=== PATIENT | female | born 1935 | race Caucasian/White ===

== ENCOUNTER 2017-10-12 19:04 | Emergency (ER) | payer OTHER ==
[~2017-10-12] VITALS: Ht 165.1 cm; Wt 75.3 kg
--- NOTE | ~2017-10-12 | EKG ---
[facility] [place] [address] ELECTROCARDIOGRAM REPORT Name: LIBORIO CARRERAN Anaid Room #: [facility]#: [id number] Admission: 10/12/17 Attend Phys: Discharge: 10/12/17 Date of : 35 Report #: [id number] THIS REPORT FOR: //name// [facility] ED Test Date: 2017-10-12 Test Time: 19:39:43 Pat Name: ABDOULAYE CARRERA Department: Room: Gender: F Knitter Machine: LUIS ALBERTO : 1935 Requested By: Linda Cota Order Number: [id number] MD: Dl Butcher Measurements Intervals [place] Rate: 67 P: 65 WY: 280 QRS: 57 QRSD: 97 T: 41 QT: 376 QTc: 397 Interpretive Statements Sinus rhythm Prolonged WY interval Nonspecific ST segment abnormality Compared to ECG 07/24/2007 06:48:31 First degree AV block now present ST and T wave abnormality is less pronounced Electronically Signed On 10-13-2017 8:08:38 CDT by Dl Butcher [email or web address] <ELECTRONICALLY SIGNED> By: Dl Butcher MD, [facility] 10/13/17 0808 38 38 Dl Butcher MD, [facility] /EPI
[~2017-10-12 19:04] MED LIST: ADVAIR 100-501 EACH INH; ASPIRIN325; ATENOLOL 25 MG25 M1 PO; BENICAR20 MG PO; CADUET 5 MG-401 EACH PO; CALCIUM 500 WI1 EAC3 PO; COMBIVENT INH; FISH OIL + D31 EACH PO; MULTIVITAMINS1 EAC7 PO; PERCOCET 5-3251 EACH PO; PREMPRO 0.45-11 EACH PO; SPIRIVA INH; TRAMADOL 50 MG50 MG PO; TYLENOL PM EX-1 EACH PO
[2017-10-12] MEDS ORDERED: GABAPENTIN 100100 MG PO (20:08)
[2017-10-12] MEDS ORDERED: FENOFIBRATE160 MG PO (20:09)
[2017-10-12] MEDS ORDERED: MEDROLDOSEPACK PO (20:51)
[2017-10-12] MEDS ORDERED: VALIUM5 MG PO (20:51)
[2017-10-12 21:19] VITALS: BP 169/62
== END 2017-10-12 21:20 | disposition home or self-care (01) ==
LOC: ER 19:04
DX: M54.12 Radiculopathy, cervical region (principal); Z88.5 Allergy status to narcotic agent; Z95.5 Presence of coronary angioplasty implant and graft

== ENCOUNTER 2018-06-14 11:36 | Emergency (ER) | payer OTHER ==
[~2018-06-14] VITALS: Ht 165.1 cm; Wt 72.6 kg
[~2018-06-14 11:36] MED LIST changes: +FENOFIBRATE160 MG PO; +GABAPENTIN 100100 MG PO; +MEDROLDOSEPACK PO; +VALIUM5 MG PO
[2018-06-14] MEDS ORDERED: MEDROLDOSEPACK PO (14:52)
[2018-06-14] MEDS ORDERED: NORCO 5-325 TA1 EACH PO (14:52)
[2018-06-14 15:16] VITALS: BP 137/48
== END 2018-06-14 15:17 | disposition home or self-care (01) ==
LOC: ER 11:36
DX: M54.16 Radiculopathy, lumbar region (principal); I25.2 Old myocardial infarction; I48.91 Unspecified atrial fibrillation; I25.10 Atherosclerotic heart disease of native coronary artery without angina pectoris; Z88.5 Allergy status to narcotic agent; Z87.891 Personal history of nicotine dependence; Z96.649 Presence of unspecified artificial hip joint

== ENCOUNTER → 2018-07-22 | Outpatient (CLI) | payer OTHER ==
[~2018-07-22] MED LIST changes: +NORCO 5-325 TA1 EACH PO
== END ==
LOC: MRI 12:04
DX: M47.26 Other spondylosis with radiculopathy, lumbar region (principal); M51.17 Intervertebral disc disorders with radiculopathy, lumbosacral region; M25.462 Effusion, left knee; M25.452 Effusion, left hip; M48.061 Spinal stenosis, lumbar region without neurogenic claudication; M71.22 Synovial cyst of popliteal space [Baker], left knee; M22.42 Chondromalacia patellae, left knee; M16.12 Unilateral primary osteoarthritis, left hip; M25.752 Osteophyte, left hip

== ENCOUNTER 2018-07-28 04:43 | Inpatient (IN) | payer OTHER ==
[~2018-07-28] VITALS: Ht 165.1 cm; Wt 74.8 kg
--- NOTE | ~2018-07-28 | HC ---
[facility] [place] [address] CONSULTATION Name: ABDOULAYE CARRERA Room #: 453-P ADM IN M.R.#: [id number] Admission: 07/28/18 Attend Phys: Nate Heath MD Discharge: Date of : 35 Report #: [id number] THIS REPORT FOR: //name// CC: Rishabh Heath DATE OF SERVICE: 07/29/2018 HISTORY OF PRESENT ILLNESS: The patient is an 83-year-old white female, originally admitted with intermittent nausea and vomiting, has a prior history of chronic low back pain. She underwent an MRI scan of her lumbar spine back on 07/22/2018 which showed L4-L5 disc bulging with some chronic changes. She also had an MRI of her left hip showing ozlksaux-ge-uersdh left hip joint arthritis. Apparently, the positioning on MRI caused her some discomfort and she has had problems with severe neck muscle spasm. She was given some baclofen and had some problems with somnolence. She was admitted, noted to have leukocytosis, hypokalemia, acute hypoxic respiratory failure. Her main complaint to me today is severe left-sided posterior neck and suprascapular pain. She holds her head, turned slightly to the right, notes that she cannot turn it to the left past midline. She is concerned about her positioning in bed. Denies any specific weakness of the left upper extremity or lower extremities. PAST MEDICAL AND SURGICAL HISTORY: Includes prior hip replacement in 2006, cardiac stent in 2006, [place] 2006. She is hard of hearing. ALLERGIES: CODEINE AND HYDROCODONE. MEDICATIONS: Please see the full medication listing. This includes vitamins, herbals, and supplements. HABITS: Former smoker, quit greater than a year ago. No history of alcohol abuse. REVIEW OF SYSTEMS: She notes the pain is in her left-sided neck and there is some pain that goes down the left arm. No current complaints of chest pain, shortness of breath, or abdominal discomfort. PHYSICAL EXAMINATION: GENERAL: The patient is an 83-year-old white female, sitting up in bed with pillow around her neck, head turned slightly to the right, in discomfort. Wanting to have the bed position changed. NEUROLOGIC AND MUSCULOSKELETAL: EOMs appeared to be full. No focal spasm was obviously palpated over the suprascapular area, although she is very tender on both the left cervical paraspinals as well as the left trapezius. I could only get her to move her neck to midline to the left. There is no obvious weakness of the left upper extremity. Tone appeared to be intact. Lower extremities, no [address] [address] CONSULTATION Name: ABDOULAYE CARRERA Room #: 453-P [facility] IN M.R.#: [id number] Admission: 07/28/18 Attend Phys: Nate Heath MD Discharge: Date of : 35 Report #: [id number] focal calf swelling, functional range of motion, strength appeared to be a grade 4-/5. No increased tone was noted. Sit to stand is min assist. She is unable to ambulate. Lower extremity dressing is max assist. ADDENDUM: The patient premorbidly had been living in a house alone, used a walker independently, was independent with ADLs, was driving, 1 step in. ASSESSMENT: 1. Severe cervical spine pain/suprascapular pain with apparent cervical spasm and cervical radiculopathy. 2. Considerable functional mobility and ADL deficits. 3. Prior history of chronic low back pain. 4. Left hip yqaenbvf-kd-bfxngm degenerative arthritis. 5. APPARENT INTOLERANCE TO BACLOFEN. 6. Prior nausea and vomiting that has resolved. 7. Electrolyte abnormalities. 8. History of leukocytosis. PLAN: Difficult situation, as she thinks she developed the neck muscle spasm apparently from lying on the MRI table. We do not have an etiology however for her symptomatology and my preference would be to obtain an MRI of her cervical spine if possible. We are considering her for an acute in-hospital inpatient rehabilitation stay, and we will follow along with you. Thank you for asking us to assist in this patient's care. By: [id number] Ortega Lambert MD /nt
[2018-07-28 04:44] VITALS: BP 164/51
[2018-07-28 06:16] LABS: HEMATOCRIT 34.8 % (37.0-47.0); HEMOGLOBIN 11.9 gm/dL (12.0-15.0); MCH 31.9 pg (26.0-34.0); MCHC 34.3 g/dL (28.0-37.0); MCV 92.9 fL (80.0-100.0); PLATELET COUNT 205 thou/uL (150-400); RBC 3.74 mil/uL (4.20-5.00); RDW 13.6 % (10.5-14.5); WBC 20.7 thou/uL (4.0-11.0)
[2018-07-28 06:24] LABS: ANION GAP 13 mmol/L (7-16); BUN 18 mg/dL (7-18); CALCIUM 9.7 mg/dL (8.5-10.1); CHLORIDE 99 mmol/L (98-107); CO2 24 mmol/L (21-32); CREATININE 0.9 mg/dL (0.6-1.0); GLUCOSE 158 mg/dL (74-106); POTASSIUM 3.1 mmol/L (3.5-5.1); SODIUM 136 mmol/L (136-145)
[2018-07-28 06:32] LABS: TROPONIN-I <0.06 ng/mL (<0.06)
[2018-07-28 06:47] LABS: URINE BILIRUBIN NEGATIVE (Negative); URINE BLOOD 1+ (Negative); URINE CLARITY CLEAR; URINE COLOR YELLOW; URINE GLUCOSE-RANDOM* NEGATIVE (Negative); URINE KETONES NEGATIVE (Negative); URINE NITRITE NEGATIVE (Negative); URINE PROTEIN (DIPSTICK) 1+ (Negative); URINE SPECIFIC GRAVITY 1.025 (1.005-1.035); URINE UROBILINOGEN 0.2 E.U./dl (0.2-1.0)
[2018-07-28 06:48] LABS: URINE LEUKOCYTES NEGATIVE (Negative)
[2018-07-28 07:01] LABS: CASTS None Seen /LPF (None Seen); CRYSTALS None Seen /LPF (None Seen); SQUAMOUS 4-10 Moderate /LPF (0-3)
[2018-07-28 07:02] LABS: BACTERIA 1-9 Few /HPF (None Seen); URINE RBC 0-2 Rare /HPF (0-2); URINE WBC 0-5 Rare /HPF (0-5)
[2018-07-28 08:11] LABS: ABSOLUTE NEUTROPHILS 17.2 thou/uL (1.4-8.2); PLATELET ESTIMATE NORMAL
[2018-07-28 08:58] VITALS: BP 105/45
[2018-07-28 09:16] VITALS: BP 116/42
[2018-07-28 09:16] LABS: ALBUMIN 3.2 g/dL (3.4-5.0); DIRECT BILIRUBIN 0.2 mg/dL (<0.1-0.3); TOTAL BILIRUBIN 0.9 mg/dL (<0.1-1.0); TOTAL PROTEIN 8.1 g/dL (6.4-8.2)
--- NOTE | 2018-07-28 10:16 | NUR ---
Received pt from the ER, pt is very sleepy and lethargic. She was not able to respond to the questions for admission and other pertinent information regarding her self and health. Will try again.
[2018-07-28 17:00] VITALS: BP 137/62
[2018-07-28 19:11] VITALS: BP 153/60
--- NOTE | 2018-07-29 02:22 | NUR ---
PT IS LESS DROWSY RESPONDS EASILY TO VOICE PT USED CALL LIGHT EFFECTIVELY PT RESTED MOST OF THE NIGHT.
[2018-07-29 03:00] VITALS: BP 158/64
[2018-07-29 05:11] LABS: ABSOLUTE NEUTROPHILS 8.2 thou/uL (1.4-8.2); BASOPHILS 0.8 % (0.0-2.0); EOSINOPHILS 0.2 % (0.0-3.0); HEMATOCRIT 32.7 % (37.0-47.0); HEMOGLOBIN 11.3 gm/dL (12.0-15.0); LYMPHOCYTES 12.3 % (24.0-44.0); MCH 31.8 pg (26.0-34.0); MCHC 34.5 g/dL (28.0-37.0); MCV 92.2 fL (80.0-100.0); MONOCYTES 6.6 % (1.0-8.0); PLATELET COUNT 188 thou/uL (150-400); POLYS 80.1 % (36.0-66.0); RBC 3.54 mil/uL (4.20-5.00); RDW 13.9 % (10.5-14.5); WBC 10.2 thou/uL (4.0-11.0)
[2018-07-29 05:31] LABS: ALBUMIN 2.8 g/dL (3.4-5.0); CALCIUM 9.1 mg/dL (8.5-10.1); CREATININE 0.9 mg/dL (0.6-1.0); MAGNESIUM 1.4 mg/dL (1.8-2.4); TOTAL BILIRUBIN 0.7 mg/dL (<0.1-1.0); TOTAL PROTEIN 7.3 g/dL (6.4-8.2)
[2018-07-29 07:40] VITALS: BP 153/67
--- NOTE | 2018-07-29 14:25 | NUR ---
PT ADMITTED RELATED TO HEADACHE AND NEXT PAIN. CM REVIEWED CHART AND SPOKE WI CARE TEAM. CM MET WITH PT AT BEDSIDE THIS DAY. PT IS A&0 X4. CM ROLE INTRODUCED. PT INDICATED SHE LIVES IN A HOUSE ALONE WITH 1 STEP TO ENTER AND NO STEPS INSIDE. PT INDICATED SHE HAD USED A FWW TO ASSIST WITH MOBILITY AND INDICATED NO HH HX. PT INDICATED SHE HAD BEEN TO A SKILLED FACILITY IN THE PAST AND THAT SHE WOULD BE RECEPTIVE TO A POST ACUTE CARE STAY IF RECOMMENDED UPON DC. CM TO FOLLOW INDICATED WITH DC PLANNING.
--- NOTE | 2018-07-29 15:08 | EKG ---
[address] [address] ELECTROCARDIOGRAM REPORT Name: SEBAS CARRERAELYN Anaid Room #: 453-P ADM IN M.R.#: [id number] Admission: 07/28/18 Attend Phys: Nate Heath MD Discharge: Date of : 35 Report #: [id number] THIS REPORT FOR: //name// [facility] ED Test Date: 2018-07-28 Test Time: 06:13:22 Pat Name: ABDOULAYE CARRERA Department: Room: [facility] Gender: F Personal Lines Account Manager: Bradley MCKNEZIE : 1935 Requested By: Cassandra Sparks Order Number: [id number] MD: Cornelio Ash Measurements Intervals [place] Rate: 76 P: 0 OR: 201 QRS: 38 QRSD: 97 T: -83 QT: 564 QTc: 635 Interpretive Statements Sinus rhythm Compared to ECG 10/12/2017 19:39:43 First degree AV block no longer present Electronically Signed On 07-29-2018 15:08:28 RACING MECHANIC by Cornelio Ash [email or web address] <ELECTRONICALLY SIGNED> By: Cornelio Ash MD 07/29/18 1508 2 2 Cornelio Ash MD /EDWIN
[2018-07-29 16:42] VITALS: BP 148/72
--- NOTE | 2018-07-29 16:57 | NUR ---
ASSUMED CARE AT 0700. AXOX2. DENIES N/V/AB PAIN. PERSISTENT L NECK/BACK PAIN. TRAMADOL GIVEN PER MD ORDER. SEEN REHAB, RECOMMENDS MRI CERVICAL. NEW ORDER GIVEN AWAITING TRANSPORTATION. POTASSIUM AND MAG REPLAED. WORKED WITH PT/OT. NO SOB NOTED OR REPORTED AT THIS TIME. WILL CONT TO MONITOR FOR PROGRESS
[2018-07-29 19:36] VITALS: BP 151/59
--- NOTE | 2018-07-30 02:34 | NUR ---
PT GIVEN TRAMADOL FOR PAIN DURING THE NIGHT PT ALSO GIVEN ZOFRAN FOR NAUSEA NO ISSUES OVERNIGHT.
[2018-07-30 05:33] VITALS: BP 146/59
[2018-07-30 08:02] VITALS: BP 138/61
[2018-07-30 10:30] VITALS: BP 138/61
[2018-07-30] MEDS ORDERED: MOBIC15 MG PO (11:07)
[2018-07-30] MEDS ORDERED: ZOFRAN 4 MG ORAL4 MG DISSOLVE (11:07)
[2018-07-30] MEDS ORDERED: BACLOFEN 10MG T10 MG PO (11:07)
[2018-07-30] MEDS ORDERED: MAGNESIUM400 MG PO (11:07)
[2018-07-30] MEDS ORDERED: ASPIR 8181 MG PO (11:07)
[2018-07-30] MEDS ORDERED: TRAMADOL 50 MG50 MG PO (11:07)
[2018-07-30] MEDS ORDERED: K-DUR 20 MEQ T20 MEQ PO (11:07)
--- NOTE | 2018-07-30 14:26 | NUR ---
ASSUMED CARE AT 0700, SHIFT ASSESSMENT DONE, MEDS GIVEN, VSS. REPORTED PAIN, PRN MEDS GIVEN. REPORTED NAUSEA, PRN ZOFRAN GIVEN. DISCHARGE ORDERS RECEIVED TO TRANSFER PATIENT TO REHAB. TRANSPORTATION WAS SCHEDULED FOR 1400. PATIENT WAS TRANSPORTED TO 5TH FLOOR REHAB AT 1415 WITH NURSING STAFF.
== END 2018-07-30 14:30 | DRG 640 ==
LOC: ER 04:43 → 4W 08:13 → EROBS 08:13 → 4W 09:25
PROVIDERS: Emergency Medicine; Student in an Organized Health Care Education/Training Program; ADMIT Internal Medicine
DX: E87.6 Hypokalemia (principal); J96.01 Acute respiratory failure with hypoxia; E46 Unspecified protein-calorie malnutrition; R11.2 Nausea with vomiting, unspecified; Z96.649 Presence of unspecified artificial hip joint; D72.829 Elevated white blood cell count, unspecified; M54.12 Radiculopathy, cervical region; G89.29 Other chronic pain; M54.5 Low back pain; M16.12 Unilateral primary osteoarthritis, left hip; I25.10 Atherosclerotic heart disease of native coronary artery without angina pectoris; I48.2 Chronic atrial fibrillation; Z60.2 Problems related to living alone; E83.42 Hypomagnesemia; I10 Essential (primary) hypertension; Z95.5 Presence of coronary angioplasty implant and graft; I25.2 Old myocardial infarction; Z88.6 Allergy status to analgesic agent; Z87.891 Personal history of nicotine dependence; Z68.27 Body mass index [BMI] 27.0-27.9, adult; Z79.82 Long term (current) use of aspirin; Z79.899 Other long term (current) drug therapy
CPT/HCPCS: 10045

== ENCOUNTER 2018-07-30 12:06 | Inpatient (IN) | payer OTHER ==
[~2018-07-30] VITALS: Ht 165.1 cm; Wt 74.4 kg
--- NOTE | ~2018-07-30 | H ---
[facility] [place] [address] [place] [address] HISTORY AND PHYSICAL Name: ABDOULAYE CARRERA Room #: 506-1 ADM IN M.R.#: [id number] Admission: 07/30/18 Attend Phys: Nate Heath MD Discharge: Date of : 35 Report #: [id number] THIS REPORT FOR: //name// CC: Ortega Heath DATE OF SERVICE: 07/30/2018 HISTORY OF PRESENT ILLNESS: The patient is an 83-year-old white female who was originally admitted to [facility] on 07/28/2018 with intractable nausea and vomiting. There is a question as to whether her most recent medication (baclofen) combined with other analgesic medications may have contributed to the evolution of her nausea and vomiting. She also had leukocytosis of 20,000 without a left shift. No obvious evidence of infection and leukocytosis was noted to resolve. She had electrolyte abnormalities that were assessed. She also developed significant pain in her neck. The patient has a prior history of low back pain and underwent a recent MRI of the lumbar spine on 07/22/2018 which revealed some degenerative changes of the lumbar spine. She also was noted to have moderate degenerative changes of her left hip. She indicated apparently during the position of the low back ____ that she had the onset of posterior neck pain. There also was some pain down that left upper extremity. I recommended a cervical spine MRI, but the patient has refused. This was discussed further with Dr. Hura and he makes excellent reference to it in his discharge summary. The patient has had a significant overall functional decline and has been admitted now for an acute in-hospital inpatient rehabilitation stay. PAST MEDICAL HISTORY: Prior hip replacement in 2006, cardiac stent in 2006, [place] in 2006. She is hard of hearing. ALLERGIES: CODEINE AND HYDROCODONE. MEDICATIONS: Please see the full medication listing. This is noted to include vitamins, herbals, and supplements. HABITS: Former smoker, quit greater than a year ago. No history of alcohol abuse. SOCIAL HISTORY: The patient premorbidly had been living in a house alone, used a walker independently, was independent with ADLs, and was driving once step in. REVIEW OF SYSTEMS: Pain appeared better, left side of the neck and down that left arm. Her main complaint at this time with some nausea. She has the chronic low back and left lower extremity pain. [facility] [address] [place] [address] HISTORY AND PHYSICAL Name: ABDOULAYE CARRERA Room #: 506-1 [facility] IN ..#: [id number] Admission: 07/30/18 Attend Phys: Nate Heath MD Discharge: Date of : 35 Report #: [id number] PHYSICAL EXAMINATION: GENERAL: The patient was seen earlier 83-year-old female, in no obvious distress. VITAL SIGNS: Temperature 97.5, pulse 66, respirations 13, and blood pressure 147/58. The patient was pleasant, in no obvious distress, but has nausea noted. HEENT: Facies are symmetric. CHEST: Sounded clear to auscultation. CARDIAC: Regular rate and rhythm. ABDOMEN: Bowel sounds positive, nontender. GENITOURINARY AND RECTAL: Deferred. EXTREMITIES: Functional range of motion of the upper extremities, no obvious weakness of the left upper extremity with cone appearing to be intact. She has some tenderness to movement of the neck, although it may be improved. Lower extremities, no focal calf swelling, functional range of motion, strength is grade 4/5 to 4-/5. No increased tone. No obvious focal weakness of the right upper extremity. She has been min assist with sit to stand. ASSESSMENT: 1. Posterior cervical spine pain with cervical radiculopathy clinically. 2. Complaints of nausea. We will defer to the hospitalist service. 3. History of intractable nausea and vomiting. 4. Transient leukocytosis. 5. Hypokalemia. 6. Hypomagnesemia. 7. Protein calorie malnutrition. 8. Recent acute hypoxic respiratory failure. 9. Chronic atrial fibrillation. 10. Chronic low back pain. 11. Coronary artery disease. PLAN: The patient is admitted for acute in-hospital inpatient rehabilitation. From a post-admission physician evaluation perspective, there are no relevant changes since the preadmission screening. Please see the above review of prior and current medical and functional conditions and comorbidities. Please see the patient's previous and current functional status. As far as risk of complications, the patient has multiple medical comorbidities as noted above. Initial plan of care involves the interdisciplinary acute inpatient rehabilitation program with the goal of maximizing the patient's functional independence, so that she can hopefully return back to her prior living situation. Measurable functional goals would be for her to become modified independent with mobility, gait training, gait aids, transfers and hopefully to feel better as far as her nausea and as far as the neck pain. We will have the therapist do some gentle therapy on her and try to slowly and gradually advance her functional mobility and ADLs. Her prognosis is reasonably good with estimated length of stay probably 2-3 weeks. Potential barriers would include [facility] [address] [place] [address] HISTORY AND PHYSICAL Name: ABDOULAYE CARRERA Room #: 506-1 ADM IN [place]#: [id number] Admission: 07/30/18 Attend Phys: Nate Heath MD Discharge: Date of : 35 Report #: [id number] her multiple medical comorbidities and decreased functional status. Although, she refused to obtain a cervical spine MRI. We will need to monitor her from a neurologic perspective and may need to again advise her in that direction especially if there is evidence of any neurologic compromise. This was well delineate in Dr. Heath's noted as well. The patient meets appropriate diagnostic criteria for an acute inpatient rehabilitation stay. She meets the medical necessity criteria and we will have the consulting hospitalist service is involved. She does have the tolerance for therapies and has appropriate discharge goals back to the home setting. By: [id number] Ortega Lambert MD /nt
--- NOTE | ~2018-07-30 | PLAN ---
[facility] [place] [address] [place] [address] REHAB UNIT PLAN OF CARE Name: ABDOULAYE CARRERA Room #: 506-1 ADM IN M.R.#: [id number] Admission: 07/30/18 Attend Phys: Ortega Lambert MD Discharge: Date of : 35 Report #: [id number] THIS REPORT FOR: //name// CC: Ortega Bryan DATE OF SERVICE: 08/01/2018 PROGRESS NOTE/OVERALL PLAN OF CARE SUBJECTIVE: The patient is seen back today in followup. She is in no distress. The left-sided posterior neck pain and suprascapular discomfort does appear to be improved from before. She appears in better spirits. Temperature 98.4, pulse 87, respirations 19, blood pressure 130/55. She was able to turn her neck with functional range of motion to the right and she can turn to the left about 30 degrees. She was able to extend and flex her neck for me without obvious discomfort. Functionally, she has been participatory in therapies. Transfers are min assist and she has ambulated up to 3 feet min assist with a front-wheeled walker. She does have mild memory deficits and functional cognition. ASSESSMENT: 1. Posterior cervical spine pain with cervical radiculopathy, which appears to be improving. She is able to move the left upper extremity with strength to grade 4-/5. 2. Complaints of nausea. It appears improved. 3. History of intractable nausea and vomiting. 4. Transient leukocytosis. 5. Electrolyte abnormalities. 6. Protein calorie malnutrition. 7. Recent acute hypoxic respiratory failure. 8. History of chronic atrial fibrillation. 9. Chronic low back pain. 10. Coronary artery disease. PLAN: The overall plan of care is based on the preadmission screen, post-admission physician evaluation and information garnered from therapy assessments. 1. Estimated length of stay is probably at least 10 days to 2 weeks pending progress. 2. Medical prognosis is reasonably good. 3. Anticipated interventions includes the interdisciplinary acute inpatient rehabilitation program with PT, OT working with her. 4. Anticipated functional outcomes would be for the patient to become modified independent with transfers, mobility and ADLs, so that she can return back to the home setting. Goal would be for her to be up with the walker. [address] [address] REHAB UNIT PLAN OF CARE Name: ABDOULAYE CARRERA Room #: 506-1 ADM IN ..#: [id number] Admission: 07/30/18 Attend Phys: Ortega Lambert MD Discharge: Date of : 35 Report #: [id number] 5. Discharge destination is going to be a house alone, where she used a walker independently. 6. Expected therapy by discipline includes PT, OT 1-1/2 hours per day each five days a week throughout the duration of the acute inpatient rehabilitation stay. By: [id number] Ortega Lambert MD /VILMA
[~2018-07-30 12:06] MED LIST changes: +ASPIR 8181 MG PO; +BACLOFEN 10MG T10 MG PO; +K-DUR 20 MEQ T20 MEQ PO; +MAGNESIUM400 MG PO; +MOBIC15 MG PO; +ZOFRAN 4 MG ORAL4 MG DISSOLVE
[2018-07-30 14:15] VITALS: BP 147/58
[2018-07-30 14:49] VITALS: BP 147/58
--- NOTE | 2018-07-30 16:05 | NUR ---
PT ADMITTED TO ROOM 506 FOR CERVICAL RADICULOPATHY FROM 4W. ALERT BUT FEELS SICK, NAUSEATE. ORIENTED BRIEFLY TO THE UNIT. VS TAKEN. SAT 89% ON 2L. INCREASE OXYGEN TO 3L. SAT 95-96% ON 3L. PT HAS IV SL ON RIGHT HAND IS INFILTRATED. D/C IV. HAS BRUISES ON UPPER EXTREMITIES, SKIN IS FRAGILE AND EDEMATOUS ON BILATERAL UPPER EXTREMITIES. PT HAS NECK AND BACK PAIN. WHEN ASKED ABOUT PAIN WHERE AND HOW MUCH. PT SAID I HAVE PAIN, BUT JUST WANTS TO LEAVE ALONE NOW. FALL PRECAUTION IN PLACE. CALL LIGHT WITHIN REACH. ENCOURAGED PT TO CALL FOR HELP NEEDS. ADMISSION MED LIST FAXED TO PHARMACY. PHARMACIST CALLED BACK FOR FUTHER INSTRUCTION ON FISH OIL, MULTIVITAMIN, CALCUM CARBONATE VERIFIED WITH DR. RUBALCAVA EACH OF THESE TAKE ONE A DAY. PT WAS ON ESTROGEN/PREPRO AT HOME, WE DON'T CARRY THIS. PT SAID I HAVEN'T ON IT SINCE I AM IN THE HOSPITAL, DOCTOR GINI OK FOR PT NOT TO BE ON PREPRO NOW. NOTIFIED DR. RUBALCAVA THAT PT IS STILL C/O NAUSEA, HE SAID HE WILL ADD SUPPOSITORY ANTIEMETIC. DR. STINSON WAS CONSULT AND NOTIFIED. DR. HEART CALLED BACK AND WILL SEE PT IN THE AM. WILL CONTINUE WITH ADMISSION PROCESS AND WILL CONTINUE TO MONITOR.
--- NOTE | 2018-07-30 18:21 | NUR ---
ADMISSION COMPLETED BY THIS NURSE. PATIENT [place], BUT ORIENTED X4. ABLE TO ANSWER ADMISSION HISTORY AND ASSESSMENT AND MAKE NEEDS KNOWN. CARE PLAN UPDATED. CONSENTS SIGNED BY PATIENT. CONTINUES TO C/O OF NAUSEA. PATIENT'S RN NOTIFIED. PATIENT RESTING IN BED. FALL PRECAUTIONS IN PLACE.
[2018-07-30 19:15] VITALS: BP 148/59
--- NOTE | 2018-07-31 02:46 | NUR ---
assumed care at approx 1900 evening 07/30. pt lying in bed at change of shift sleeping. 02 at 3l per n/c. pt c/o nausea mostly when she gets up or changes position. pt assisted up to bsc and c/o dizziness and nausea/vomiting small amt emesis. pt was able to take hs meds without difficulty. pt back in bed appears to be sleeping soundly. bed alarm on and call light in reach. will continue to monitor.
[2018-07-31 05:48] LABS: HEMATOCRIT 32.3 % (37.0-47.0); HEMOGLOBIN 11.1 gm/dL (12.0-15.0); MCH 32.2 pg (26.0-34.0); MCHC 34.5 g/dL (28.0-37.0); MCV 93.2 fL (80.0-100.0); RBC 3.46 mil/uL (4.20-5.00); RDW 13.6 % (10.5-14.5); WBC 11.7 thou/uL (4.0-11.0)
[2018-07-31 06:07] LABS: CALCIUM 8.7 mg/dL (8.5-10.1); CREATININE 1.2 mg/dL (0.6-1.0); POTASSIUM 4.8 mmol/L (3.5-5.1)
[2018-07-31 07:30] VITALS: BP 123/51
--- NOTE | 2018-07-31 16:34 | NUR ---
ASSUMED CARE OF PT AT 0715. PT IS A&OX4. IS INUPIAT. REPORTS PAIN WITH MOVEMENT BILATER BACK THAT BEGAN SHE STATED WHILE SITTING UP IN BED. PT WAS TRANSFERED TO THE CHAIR. PT WAS WAS ADMINISTERED TRAMADOL 50MG 1 TIME. WAS OFFERED 100MG, BUT PT REFUSED. PT STATED "I DON'T WANT TO KEEP TAKING MEDS". THIS NURSE OFFERED TO CONTATCT DOCTOR FOR ORDER FOR HEATING PAD. PT REFUSED. IS ON 3L OF O2/NC. IS UP WITH 1 ASSIT, GB, TO BEDSIDE COMMODE. REQUIRES EXTRA TIME D/T PAIN. FALL PERCAUTIONS & HOURLY ROUNDING MAINTAINED. LABS & VITALS REVIEWED. PT ASKED THIS NURSE "YOU HAVEN'T HAPPENED TO FIND ANY GLASSES LYING AROUND?". THIS NURSE REPLIED "NO, MA'AM. WHAT DOES YOUR GLASSES LOOK LIKE & WHEN WAS THE LAST TIME THAT YOU SAW THEM". THE PT REPLIED, "THEY ARE THIN & BLACK WITH PROGRESSIVE LENSES. I HAVEN'T SEEN THEM SINCE I CAME THROUGH THE ER". THIS NURSE INFORMED THE PT THAT I WOULD CALL THE ER TO FIND OUT. CONTACTED ER & WAS FORWARED TO THE SECURITY OFFICE. SECURITY REPORTED THAT THEY WOULD LOOK AROUND & INFORM CALL BACK. THIS NURSE TO NOTIFY PT. PT IS CURRENTLY IN ROOM SLEEPING IN BED. CALL LIGHT WITHIN REACH.
[2018-07-31 20:23] VITALS: BP 130/55
--- NOTE | 2018-08-01 04:13 | NUR ---
PT TRANSFERRING TO BEDSIDE COMMODE WITH ASSIST X1 AND IS TOLERATING FAIR. TRAMADOL AND BACLOFEN PROVIDING PARTIAL PAIN RELIEF. RESTING COMFORTABLY. NO NEEDS VOICED. CALL LIGHT WITHIN REACH. WILL CONTINUE TO PROVIDE FREQUENT OBSERVATION.
[2018-08-01 08:00] VITALS: BP 130/60
--- NOTE | 2018-08-01 08:40 | NUR ---
cm visited with pt at bedside, she is a & o x 2-3, pleasant and tazl[place]. noted pt spiting up fluid in basin, chart reviewed. cm notified bedside nurse of pt stated "not feeling well"/kailash. per chart " live alone, 1 step to enter home been to post acute in past."/chart. noted pt was on 3l/nc. will cont following as needed for dc needs. provided senior blue book for outside resources.
[2018-08-01 08:43] LABS: ABSOLUTE NEUTROPHILS 7.2 thou/uL (1.4-8.2); BASOPHILS 1.2 % (0.0-2.0); EOSINOPHILS 1.3 % (0.0-3.0); HEMATOCRIT 31.2 % (37.0-47.0); HEMOGLOBIN 10.5 gm/dL (12.0-15.0); MCH 31.3 pg (26.0-34.0); MCHC 33.6 g/dL (28.0-37.0); MCV 93.3 fL (80.0-100.0); MONOCYTES 9.4 % (1.0-8.0); PLATELET COUNT 243 thou/uL (150-400); POLYS 74.1 % (36.0-66.0); RBC 3.35 mil/uL (4.20-5.00); RDW 13.8 % (10.5-14.5); WBC 9.7 thou/uL (4.0-11.0)
[2018-08-01 08:53] LABS: CALCIUM 9.9 mg/dL (8.5-10.1); CREATININE 1.2 mg/dL (0.6-1.0); MAGNESIUM 2.2 mg/dL (1.8-2.4); POTASSIUM 4.6 mmol/L (3.5-5.1)
--- NOTE | 2018-08-01 11:32 | NUR ---
ASSUMED CARE OF PT AT 0715. PT IS A&OX4. IS [place]. PT SAID HER NAUSEA IS GETTING BETTER. CONTINUE TO BE ON SCHEDULE ZOFRAN. REPORTS BACK AND NECK PAIN WITH MOVEMENT. GAVE PRN TRAMADOL.PT C/O NOT ABLE TO SWALLOW. NOTIFIED DR. YANCEY FOR SPEECH EVAL. PT IS CONT BLADDER, ASSISTED TO BSC WITH ASSIST. PT HAS CERVICAL MRI. REFUSED TODAY SHE SAID SHE DOESN'T FEEL WELL TODAY AND WANTS TO DO ANOTHER THE TIME. MORNING MEDS NOT GIVEN SINCE PT REFUSES. JUAN, RISK INTERN IS AWARE. NOTIFIED JUAN THAT PT IS ON SCHEDULE POTASSIUM AND MAG. POTASSIUM 4.6, MG 2.2. JUAN SAID SHE WILL D/C POTASSIUM AND MAG SCHEDULE. OFFERED SUPPORTIVE CARE, VSS ON 2L OXYGEN. SAT 94%. UP WITH 1 ASSIT, GB, TO BEDSIDE COMMODE. REQUIRES EXTRA TIME D/T PAIN. FALL PERCAUTIONS & HOURLY ROUNDING MAINTAINED. LABS & VITALS REVIEWED. PT IS NOT IN GOOD SPIRIT THIS AM AND REQUEST TO LEAVE ALONE. WILL CONTINUE TO MONITOR.
[2018-08-01 20:47] VITALS: BP 159/68
--- NOTE | 2018-08-02 00:20 | NUR ---
SMALL UNFORMED STOOL, DECLINES MIRALAX TONIGHT. UP TO BSC WITH MINIMAL ASSIST UP AND STAFF ASSIST NEEDED TO GET LEGS BACK IN BED. PAIN IN BACK WHICH SHE BLAMES ON THE BED, REPOSITIONED UP AND TO HER LEFT SIDE FOR COMFORT. APPRECIATES VOLTAREN TO SHOULDER BLADES ESPECIALLY ON THE RIGHT SIDE. CONTINTIENT, WEARING BRIEF FOR POSSIBLE STRESS INCONTINENCE EPISODE.
--- NOTE | 2018-08-02 06:43 | NUR ---
given PRn laxatives for constipation. no BM since 07/28. hypoactive bowel sounds. passed large amount of flatus this morning. continent of urine. up to BSC to void this morning. denies pain. calm, appropriate, no s/s of depression during conversations.
[2018-08-02 07:59] VITALS: BP 156/73
--- NOTE | 2018-08-02 12:22 | NUR ---
ASSUMED CARE OF PT AT 0715. PT IS A&OX4. IS [place]. NIGHT NURSE PT SLEPT OK LAST NIGHT, DENIES PAIN. CONTINUE TO BE ON SCHEDULE ZOFRAN, EXTRA STRENGHT TYLENOL. PAIN AND NAUSEA ARE MANAGABLE. PT C/O SORE LEFT SHOULDER PAIN. OBTAINED VOLARENE GEL, AND GIVE MED NEED. KUB THIS AM SHOWS POSSIBLE MILD COLONIC ILEUS. NOTIFIED JUAN, OBTAIN MORE LAXATIVE NEEDS. GAVE MIRALAX WITH WARM APPLE JUICE, WILL GIVE SUPPOSITORY MED LATER AFTER THERAPY. THERAPISTS REQUEST FOR COGNITIVE EVAL. PT IS MORE COOPERATIVE, UP IN RECLINER, EATING MORE 75% BREAKFAST AND 50% LUNCH. OFFERED SUPPORTIVE CARE, VSS ON 2L OXYGEN. SAT 97%. HAS CONGESTED COUGH, JUAN IS NOTIFIED AND SAID NO NEED FOR CHEST XRAY AT THIS MOMENT. UP WITH 1 ASSIT, GB, TO BEDSIDE COMMODE. REQUIRES EXTRA TIME D/T PAIN. FALL PERCAUTIONS & HOURLY ROUNDING MAINTAINED. LABS & VITALS REVIEWED. PT CALM, COOPERATIV, IN GOOD SPIRIT THIS AM. HER GOALS ARE TO WORK WITH THERAPY BEFORE DISCHARGE. WILL CONTINUE TO MONITOR.
[2018-08-02 19:22] VITALS: BP 131/62
[2018-08-03 07:30] VITALS: BP 157/55
--- NOTE | 2018-08-03 10:38 | NUR ---
ASSUMED CARES AT 0700. PT IN BED, AWAKE, A&O*4. [place], SOME CONFUSION NOTED. VITALS REMAINED STABLE. PT C/O BACK AND NECK PAIN, PAIN MEDICATION ADMINISTERED NEEDED. LEFT HAND EDEMA, DRESSING CHANGED AND PT ENCOURAGED TO ELEVATE EXTREMITY. SKIN TEAR ON LEFT HAND CLEANED AND DRESSING CHANGED. PT CONTINUES TO HAVE BLE EDEMA. PULSES 2+/2+. PT HAD MRI THIS AM, AWAITING RESULTS. PT UP WITH 1 PERSON PIVOT TRANSFERS, AMBULATING WITH 1 PERSON ASSIST GAITBELT AND WALKER AND TOLERATED WELL. Q1H VISUAL CHECKS. CALL LIGHT WITHIN REACH. FALL PRECAUTIONS IN PLACE
--- NOTE | 2018-08-03 14:41 | NUR ---
Patient participated in community reintegration on 08/03/18 with Physical Therapy. Refer to documentation by PT.
[2018-08-03 19:12] VITALS: BP 129/52
--- NOTE | 2018-08-04 04:04 | NUR ---
PAIN MANAGED WITH TRAMADOL AT HS AND VOLTAREN TO RIGHT SCAPULA. UP TO BATHROOM WITH STANDBY ASSIST AND HELP WITH GETTING LEGS BACK IN BED. WEARS BRIEF DUE TO OCCASIONAL STRESS INCONTINENCE THAT HAS NOT BEEN SEEN TONIGHT. TURNING SELF TO LEFT SIDE IN BED AND STATES THAT SHE IS MUCH MORE COMFORTABLE IN THE BED TONIGHT THAN LAST NIGHT. NO C/O NAUSEA AND AWARE OF NEED TO CONTINUE MIRALAX BID FOR NOW; NO BM THIS SHIFT
[2018-08-04 05:27] LABS: ABSOLUTE NEUTROPHILS 3.9 thou/uL (1.4-8.2); BASOPHILS 0.8 % (0.0-2.0); EOSINOPHILS 4.2 % (0.0-3.0); HEMATOCRIT 29.7 % (37.0-47.0); HEMOGLOBIN 10.3 gm/dL (12.0-15.0); LYMPHOCYTES 24.3 % (24.0-44.0); MCH 32.1 pg (26.0-34.0); MCHC 34.8 g/dL (28.0-37.0); MCV 92.2 fL (80.0-100.0); MONOCYTES 11.3 % (1.0-8.0); PLATELET COUNT 218 thou/uL (150-400); POLYS 59.4 % (36.0-66.0); RBC 3.22 mil/uL (4.20-5.00); RDW 13.8 % (10.5-14.5); WBC 6.5 thou/uL (4.0-11.0)
[2018-08-04 05:33] LABS: MAGNESIUM 1.4 mg/dL (1.8-2.4); POTASSIUM 4.1 mmol/L (3.5-5.1)
[2018-08-04 08:25] VITALS: BP 142/58
[2018-08-04 08:26] VITALS: BP 130/58
--- NOTE | 2018-08-04 09:00 | NUR ---
PER OT RANDY, PT C/O DIZZINESS WHILE PERFORMING ADL'S THIS AM. O2 SAT 84% AND CAME UP TO 96% QUICKLY WITH CUES FOR DEEP BREATHS. PT TOLERATED ADL'S, AND PCT CHECKED SITTING AND STANDING BP/PULSE FOR ORTHOSTATIC HYPOTENSION. SEE VS REPORTS. ALL RESULTS NOTED TO JUAN SRIVASTAVA NP.
--- NOTE | 2018-08-04 10:27 | NUR ---
ASSUME PT CARE AT 0900. ALERT AND ORIENTED X4, C/O SHAKING, NERVOUSNESS. JUST HAD COGNITIVE EVAL WITH SPEECH THERAPIST. VSS ON RA. SAT 97% ON RA. MORNING MEDS GIVEN. MIRALAX GIVEN SCHEDULED. LAST BM WAS YESTERDAY. PT DOESN'T LIKE MIRALAX BUT TAKE IT INSTRUCTED. UP WITH CGA AND WALKER. ATE 75% BREAKFAST. DENIES NAUSEA. NOTIFIED JUAN ABOUT SHAKING, NERVOUS, NAUSEA AND DISLIKE OF MIRALAX TO OBTAIN ORDER TO CHANGE ZOFRAN SCHEDULE TO PRN AND MIRALAX ONCE A DAY. OFFERED SUPPORTIVE CARE. ENCOURAGED PT TO VOICE HER NEEDS AND REASSURE PT THAT SHE IS DOING BETTER. PT IS SMILING, IN GOOD SPIRIT. UP AND WALKING WITH PHYSCIAL THERAPIST NOW. WILL CONTINUE TO MONITOR AND ENCOURAGE PT TO CALL FOR HELP. FALL PRECAUTION IN PLACED.
--- NOTE | 2018-08-04 13:34 | NUR ---
TEAM MEETING, RECOMMENDATION: RE-TEAM NEXT WEEK WITH POSSIBLE DC 10TH. WILL CONT FOLLOWING NEEDED FOR DC NEEDS.
[2018-08-04 19:25] VITALS: BP 94/71
--- NOTE | 2018-08-05 02:02 | NUR ---
BLAMES BACK PAIN ON BED, TRAMADOL AT HS NOT HELPFUL PREVIOUS NIGHT. NOW TRYING ANOTHER TRAMADOL PLUS BACLOFEN AND VOLTAREN. TURNED TO RIGHT SIDE AT THIS TIME. USED BATHROOM FOR SMALL BROWN UNFORMED STOOL AFTER A LOT OF FLATUS.
[2018-08-05 08:15] VITALS: BP 126/53
--- NOTE | 2018-08-05 11:50 | NUR ---
ASSUME PT CARE AT 0700. REPORTS SLEEP GOOD LAST NIGHT. ALERT AND ORIENTED X4, [place], ABLE TO VOICE HER NEEDS. UP WITH CGA AND WALKER. APPETITE GOOD. DENIES NAUSEA. OBTAINED ORDER TO CHANGE ZOFRAN TO PRN. REASSESSMENT PER CHART. DESAT TO 80% EARLIER. 1L OF OXYGEN APPLIED. SAT 98%. OXYGEN OFF NOW. SAT 94% ON RA. ENCOURAGED PT TO DO DEEP BREATHING OFTEN. OFFERED SUPPORTIVE CARE. ENCOURAGED PT TO VOICE HER NEEDS AND REASSURE PT THAT SHE IS DOING BETTER. FRIEND AT BEDSIDE. PT IS SMILING, IN GOOD SPIRIT. WILL CONTINUE TO MONITOR AND ENCOURAGE PT TO CALL FOR HELP. FALL PRECAUTION IN PLACED. CALL LIGHT WITHIN REACH. CHECK FREQUENTLY FOR NEEDS AND SAFETY.
[2018-08-05 20:54] VITALS: BP 164/55
--- NOTE | 2018-08-06 02:36 | NUR ---
assumed care at approx 1900 evening 08/05. pt lying in bed with head of bed elevated sleeping off and on. pt given pain med for back/neck pain. pt took hs meds with applesauce tolerating well. pt appears to be sleeping soundly with hourly rounding checks. bed alarm on and call light in reach. will continue to monitor.
--- NOTE | 2018-08-06 16:23 | NUR ---
PT. UP MOST OF THE DAY IN HER ROOM. DID ATTEND THERAPIES. REFUSED SHOWER AND/OR SPONGE BATH STATING, "I DON'T NEED TO BATHE EVERYDAY" TOOK MEDICATIONS WITH APPLESAUCE. HAS NOT HAD BM TODAY. DENIES PAIN. NO PAIN MEDS GIVEN. CHANGED OPTI FOAM TO L WRITST. WAS PLEASANT AND COOPERATIVE WITH ALL STAFF AND PEERS. HAD FAMILY VISITORS TODAY. WILL CONTINUE PLAN OF CARE
[2018-08-06 19:24] VITALS: BP 137/54
--- NOTE | 2018-08-07 03:16 | NUR ---
UP TO BATHROOM WITH GAIT BELT AND WALKER TWICE TONIGHT. MANAGING HER OWN BRIEF WHICH HAS BEEN DRY BUT SHE WEARS OUT OF HABIT DUE TO OCCASIONAL STRESS INCONTINENCE. ABLE TO GET HER LEGS BACK IN BED AFTER THE SECOND TRIP TO BATHROOM TONIGHT.
[2018-08-07 07:21] VITALS: BP 155/74
--- NOTE | 2018-08-07 11:11 | NUR ---
ASSUMED CARE AT 0700. PATIENT IS ALERT AND ORIENTED X4. PATIENT IS [place]. PATIENT VALIENTE'S, INSOLE REINFORCER ARE EQUAL. PATIENT IS UP WITH ASSIST OF 1 STAFF, GAIT BELT, AND WALKER. UP IN CHAIR FOR MEALS. FALL AND SAFETY PROTOCOLS IN PLACE. DENIES PAIN AT THIS TIME. CONTINUES TO PROGRESS SLOWLY TOWARDS D/C GOALS. WILL CONTINUE T0 MONITER.
[2018-08-07 19:32] VITALS: BP 144/99
--- NOTE | 2018-08-08 01:33 | NUR ---
APPRECIATES BACLOFEN WITH 50 MG TRAMADOL AT HS AND HAS BEEN RESTING WELL ON HER SIDE TONIGHT. SBA WITH WALKER AND GAIT BELT TO THE BATHROOM, MANAGES OWN BRIEF, ABLE TO GET LEGS BACK IN BED BY HERSELF TONIGHT. AMUSED BY TAKING MEDS WITH APPLESAUCE AND STATES HOW MUCH EASIER PILLS ARE TO SWALLOW.
[2018-08-08 04:29] LABS: ABSOLUTE NEUTROPHILS 4.6 thou/uL (1.4-8.2); EOSINOPHILS 2.7 % (0.0-3.0); HEMATOCRIT 30.3 % (37.0-47.0); HEMOGLOBIN 10.5 gm/dL (12.0-15.0); LYMPHOCYTES 21.4 % (24.0-44.0); MCH 32.3 pg (26.0-34.0); MCHC 34.8 g/dL (28.0-37.0); MCV 92.9 fL (80.0-100.0); MONOCYTES 9.3 % (1.0-8.0); PLATELET COUNT 190 thou/uL (150-400); POLYS 65.6 % (36.0-66.0); RBC 3.26 mil/uL (4.20-5.00); RDW 13.8 % (10.5-14.5)
[2018-08-08 04:34] LABS: CALCIUM 9.8 mg/dL (8.5-10.1); MAGNESIUM 1.4 mg/dL (1.8-2.4); POTASSIUM 3.8 mmol/L (3.5-5.1)
[2018-08-08 08:13] VITALS: BP 136/67
--- NOTE | 2018-08-08 12:34 | NUR ---
PATIENT WAS SCHEDULED FOR A 10:00 OT ADL BUT REFUSED DUE TO NAUSEA. SHE HAD JUST GOTTEN A NAUSEA PILL AND OT AGREED TO RETURN AT 11:00. AT 11:00 PATIENT STATED THAT SHE WAS NOT GOING TO DO ANY THERAPY; SHE WAS NOT FEELING WELL. OT EXPLAINED THAT SHE COULD PARTICIPATE AT CHAIR LEVEL FOR A SPONGE BATH AND DRESSING BUT PATIENT BECAME TEARFUL AND STATED THAT WHE WAS NOT GOING TO BE FORCED INTO IT. OT EXPLAINED THAT INSURANCE WOULD NOT CONTINUE TO COVER HER STAY UP HERE IF SHE DID NOT PARTICIPATE IN THERAPY AND THAT SHE WAS DOING SO MUCH BETTER AND DID NOT WANT TO LOSE GROUND. OT COULD NOT CONVINCE PATIENT TO PARTICIPATE IN THERAPY TODAY EVEN AFTER MUCH ENCOURAGEMENT. AND STATED THAT
[2018-08-08 19:30] VITALS: BP 149/53
--- NOTE | 2018-08-08 19:40 | NUR ---
ASSUMED CARE AT APPROX 0715. PATIENT A/O X4. [place]. DENIES PAIN. UP X1 ASSIST, GB AND WALKER. PARTICIPATING IN THERAPY. DRESSING TO LEFT HAND CHANGED PRE ORDERS. CXR COMPLETE. PATIENT COMPLAINING OF SNEEZING, NASAL DRAINAGE. FLONASE ORDERED. MAGNESIUM REPLACED PER ONETIME ORDER. FALL PRECAUTIONS IN PLACE. PATIENT ABLE TO MAKE NEEDS KNOWN. RESTING IN RECLINER AT CHANGE OF SHIFT.
--- NOTE | 2018-08-08 21:41 | HC ---
[facility] [place] [address] [place] [address] CONSULTATION Name: ABDOULAYE CARRERA Room #: 506-1 [facility] IN ..#: [id number] Admission: 07/30/18 Attend Phys: Ortega Lambert MD Discharge: Date of : 35 Report #: [id number] THIS REPORT FOR: //name// CC: Ortega Bryan DATE OF SERVICE: 08/06/2018 NEUROBEHAVIORAL STATUS EXAMINATION ATTENDING PHYSICIAN: Nate Heath M.D. CHRONIC CARE NURSE: Macario Harris, PhD. CLINICAL PRESENTATION: The patient is an 83-year-old female admitted to the rehabilitation unit at [facility] for a comprehensive inpatient rehabilitation program to improve functional mobility, activities of daily living and self-care and mental status secondary to deficits from posterior cervical spine pain and cervical radiculopathy. She was initially admitted to the hospital with intractable nausea and vomiting. Her assessment on rehabilitation included complaints of nausea, history of intractable nausea and vomiting, transient leukocytosis, hypokalemia, hypomagnesemia, protein-calorie malnutrition, recent acute hypoxic respiratory failure, chronic atrial fibrillation, chronic low back pain and coronary artery disease. A neuropsychological assessment was requested to provide assistance in the assessment of cognitive and emotional status and to provide recommendations and services. Prior to this most recent admission, the patient was living independently in her own home. While laying down in her bed she reported severe pain that led her to call 911 for emergency assistance. She had 2 children. One child at age 29 from cancer. The patient is a high school graduate. 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 Prior to her hosptialization, she reports having been independent with instrumental activities of daily living. Social support is reported as good. TECHNIQUES UTILIZED: Clinical interview, review of medical records, staff consultation and behavioral observation, mini mental status exam 2 standard version and clock drawing and verbal fluency assessment (letter and category). EXAMINATION FINDINGS: The patient was alert and cooperative with the assessment. She accurately described events surrounding her admission. There is no evidence of aphasia. Thoughts are logical and goal oriented. The patient is severely hard of hearing. She does not report auditory or visual hallucinations or suicidal ideation. [facility] [address] [place] [address] CONSULTATION Name: ABDOULAYE CARRERA Room #: 506-1 ADM IN M.R.#: [id number] Admission: 07/30/18 Attend Phys: Ortega Lambert MD Discharge: Date of : 35 Report #: [id number] She requires increased volume during verbal communication, which is likely to impact her overall level of functioning because of auditory perception. She describes symptoms to primarily include sleep with no difficulty in memory, word finding or attention/concentration. Appetite she described is normal. She does not report anxiety or depression. Her performance on the brief version of the MMSE 2 is within normal limits with a raw score 16/16. However, it was necessary to use written compensation because of severe hearing deficits in order to assess memory. Auditory memory is likely to be reduced as a result of hearing. Performance on the MMSE 2 standard version is within normal limits with a raw score of 28/30. She was 3/5 for serial sevens, 2/2 for naming, 1/1 for repetition, 3/3 for auditory comprehension. She could read and follow a single command, write a sentence and copy a simple geometric design. Letter fluency was in the borderline range with a raw score of 13, T-score 35, and percentile rank of 7. Category fluency assessed through animal fluency was in the low average range with a T-score of 39 and percentile rank of 14. Evidence of working memory deficits are noted during letter fluency as she frequently forgot what words she had just said. Consistent with working memory deficts are impairment in attention and concentration. 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 Unspecified anxiety -- patient reports being listless and lethargic during the day. RECOMMENDATIONS: The patient will benefit from increased assistance upon her return home. She is living independently and assistance may be necessary for shopping, cooking and maintaining the home. Additionally, a hearing assessment is indicated. Thank you very much for allowing me to provide the consultation on this patient. <ELECTRONICALLY SIGNED> By: Macario Harris, PhD 08/08/18 [id number] Macario Harris, PhD /nt
--- NOTE | 2018-08-08 22:58 | NUR ---
PT ALERT AND ORIENTED X 4. TEARFUL AT TIMES. AMB TO BR WITH WALKER AND ASSIST X 1. TAKES MEDS IN APPLESAUCE WITHOUT DIFFICULTY. PT REFUSED MIRALAX AT BEDTIME. LEFT HAND DRESSING C/D/I. OCCASIONAL SNEEZING AND COUGHING NOTED. PT DENIES PAIN OR DISCOMFORT. BED ALARM ON FOR SAFETY. PT APPEARS TO BE SLEEPING ON HOURLY ROUNDS.
--- NOTE | 2018-08-09 06:56 | NUR ---
PT WOKE UP C/O NAUSEA. VOMITED SMALL AMT YELLOW MUCOUS. ZOFRAN GIVEN ORDERED. REPORT GIVEN TO DAY NURSE.
[2018-08-09 07:48] VITALS: BP 135/57
[2018-08-09 11:31] LABS: URINE BILIRUBIN NEGATIVE (Negative); URINE BLOOD NEGATIVE (Negative); URINE CLARITY HAZY; URINE COLOR YELLOW; URINE GLUCOSE-RANDOM* NEGATIVE (Negative); URINE KETONES NEGATIVE (Negative); URINE NITRITE-REFLEX NEGATIVE (Negative); URINE PROTEIN (DIPSTICK) NEGATIVE (Negative); URINE UROBILINOGEN 0.2 E.U./dl (0.2-1.0)
[2018-08-09 11:32] LABS: URINE LEUKOCYTES-REFLEX NEGATIVE (Negative)
--- NOTE | 2018-08-09 12:48 | NUR ---
team meeting, recommendation: initial supervision vs just frequent checks, medication set up and address medical issue. dc and or wednesday depending on medical issue, if family could stay with her for few days when gets home. hh (pt,ot,st,sw, and nursing).
--- NOTE | 2018-08-09 15:53 | NUR ---
ASSUMED CARES AT 0700. PT AWAKE, ALERT AND ORIENTED*4. C/O NAUSEA AND HAD 4 MOD-LARGE EMESIS EPISODES. ABDOMEN SOFT AND ROUND, BS ACTIVE *4, LAST BM 08/07. KUB ORDERED, SHOWED NO OBSTRUCTION AND NO ILLEUS. ZOFRAN ODT ADMINISTERED NEEDED FOR NAUSEA. PT C/O HEADACHE 03/11. TRAMADOL ADMINISTERED NEEDED. LS CLEAR, PT HAS A DRY COUGH, O2 SATS > 95%. HOSPITALIST NOTIFIED. URINALYSIS AND OCCULT BLOOD ORDERED. PT CONTINUES TO HAVE A SKIN TEAR ON THE LEFT HAND, DRESSING CHANGED. UP WITH 1 PERSON MINIMAL ASSIST AND TOLERATED WELL. Q1H VISUAL CHECKS. CALL LIGHT WITHIN REACH. FALL PRECAUTIONS IN PLACE
[2018-08-09 19:20] VITALS: BP 145/53
--- NOTE | 2018-08-10 01:17 | NUR ---
PT ALERT AND ORIENTED X 4. AMB TO BR WITH WALKER AND ASSIST X 1 WITHOUT DIFFICULTY. STOOL OCCULT BLOOD NEGATIVE. PT DENIES PAIN OR DISCOMFORT. DENIES NAUSEA. BED ALARM ON FOR SAFETY. PT CHECKED ON HOURLY ROUNDS.
[2018-08-10 08:36] VITALS: BP 153/63
--- NOTE | 2018-08-10 10:13 | NUR ---
ASSUMED CARES AT 0700. PT AWAKE, A/O*4. DENIES N&V, SCOPALAMINE PATCH ON AND ZOFRAN ADMINISTERED BEFORE MEALS. DENIES PAIN. VITALS REMAIN STABLE. SKIN ON HAND LEFT INTACT, SMALL AMOUNT OF CLEAR DRAINAGE NOTED, CLEANED AND DRESSING CHANGED. MILD EDEMA ON BLE. PT UP WITH 1 PERSON ASSIST AND TOLERATED WELL. Q1H VISUAL CHECKS. CALL LIGHT WITHIN REACH. FALL PRECAUTIONS IN PLACE
--- NOTE | 2018-08-10 14:18 | NUR ---
Nutrition: pt admitted with cervical radiculopathy and seen due to LOS on rehab unit. Chart reviewed. Pt tolerating meals on regular diet. Intake variable however due to Intermittent N/V. GI on consult. ? gastroparesis. Pt has declined EGD. On zofran. Intake 25-100% of meals. Able to order meals. Stable weights. Refuses supplements. D/C soon. Consider low nutrition risk.
--- NOTE | 2018-08-10 14:52 | NUR ---
Patient participated in community reintegration on 08/10/18 with Physical Therapy. Refer to documentation by Physical Therapy.
--- NOTE | 2018-08-10 15:07 | NUR ---
FAXED REFERRAL TO [facility] SPOKE WITH NANCY IN ADM. AND SHE RECEIVED REFERRAL AND REVIEWED AND CAN ACCEPT PT. AT DISCHARGE. ANTICIPATE DC ANYWHERE BETWEEN WEDNESDAY OR EARLY NEXT WEEK. DCP TO FOLLOW.
[2018-08-10 15:09] VITALS: BP 153/63
--- NOTE | 2018-08-10 15:57 | NUR ---
daljit visited with friend yun via phone call who stated " i can help her with setting up her medication when she gets home and check on her. she agreed to order a life alert and niece will get that set up heron. heron will be one who brings her home because she will not be able to get my car, its to low to ground. heron # [phone]"/yun. daljit spoke with nimaria victoria on phone call rt dcp " we will help here and yun might even stay night if kailash will agree to let her, life alert station should arrive tomorrow. i am not able to pick her up until wednesday, rt not back in town till then. [facility] great and they can call me and set up time. i will cont to come weekly and check on her. she told us that you all do not feel she should drive. we will encourage that she no longer drive and going to get her smaller microwave to use that she does not have to reach over her head to cook in. need to know list of her medication and would like to know if cbd medication she has at home is going to interact with any of her medciation. we will check on her and reminder her to take her medication."/heron- nathaniel. education on someone being able to assist her with her finances. " oh we will try, but she has it but doesn't not like to spend it and minute she gets bill she wants to pay it"/heron. will cont following as needed for dc needs. referral sent to [facility] per pt,family request. [facility] able to accept for hh at dc (pt, ot, st, nursing and sw).
[2018-08-10 19:26] VITALS: BP 127/45
--- NOTE | 2018-08-11 05:54 | NUR ---
PT STAYED LATE IN THE CHAIR, HAD TWO CUPS COFFEE, TOILETED, NO BM PASSED, TOOK MIRALAX LAST NOC, FOR PAIN WAS MEDICATED WITH [place] AND BACLOFEN, RESTING GOOD, ON ROOM AIR, USING CALL LIGHT APPROPRIATELY, HOURLY ROUNDING, MONITORED.
--- NOTE | 2018-08-11 16:33 | NUR ---
ASSUMED CARE AT APPROX 0715. PATIENT A/O X4. PARTICIPATING IN THERAPY. VSS. UP X1 ASSIST GB AND WALKER. MOVED TO ROOM 501. MOD I IN ROOM, WHITE BELT FALL PRECAUTIONS IN PLACE. L WRIST OPTIFOAM C/D/I. DENIES PAIN, NAUSEA, VOMITING THIS DATE. SCHEDULED ZOFRAN GIVEN. CALLS APPROPRIATELY FOR ASSISTANCE WILL CONTINUE TO MONITOR.
[2018-08-11 21:02] VITALS: BP 137/51
--- NOTE | 2018-08-12 05:06 | NUR ---
patient calm, pleasant, cheerful. up to recliner during the evening. denied pain. using walker for ambulation in room - mod independence for mobility. denied nausea. no BM this shift, took scheduled laxative at HS. drinking water.
[2018-08-12 05:29] LABS: BASOPHILS 0.7 % (0.0-2.0); EOSINOPHILS 2.9 % (0.0-3.0); HEMATOCRIT 30.4 % (37.0-47.0); HEMOGLOBIN 10.3 gm/dL (12.0-15.0); LYMPHOCYTES 29.2 % (24.0-44.0); MONOCYTES 9.3 % (1.0-8.0); PLATELET COUNT 177 thou/uL (150-400); POLYS 57.9 % (36.0-66.0); RBC 3.23 mil/uL (4.20-5.00); RDW 14.4 % (10.5-14.5)
[2018-08-12 05:46] LABS: CALCIUM 8.9 mg/dL (8.5-10.1); CREATININE 1.1 mg/dL (0.6-1.0); MAGNESIUM 2.1 mg/dL (1.8-2.4); POTASSIUM 4.2 mmol/L (3.5-5.1)
[2018-08-12 08:00] VITALS: BP 133/52
--- NOTE | 2018-08-12 10:30 | NUR ---
ASSUMED CARE AT APPROX 0715. PATIENT A/O X4. [place]. REPORTS SLEPT GOOD ON THE REGULAR BED AT THE APARTMENT. TOOK ALL MORNING MEDS. DENIES SOB, N/V. PAIN. TOOK PAIN MEDS SCHEDULED. PARTICIPATING IN THERAPY. VSS. UP X1 ASSIST GB AND WALKER. MOVED TO ROOM 501. MOD I IN ROOM, WHITE BELT FALL PRECAUTIONS IN PLACE. L WRIST SKIN TEAR IS SCABBED OVER DRUM DRIER. OFFERED SUPPORTIVE CARE. ENCOURAGED PT TO VOICE HER NEEDS. HER GOALS CONTINUE WITH THERAP BEFORE DISCHARGE HOME ON NEXT WEDNESDAY. REPORTS HAD LOOSE STOOL THIS AM. HELD MIRALAX AND COLACE AND CONTINUE TO MONITOR SINCE PT HAS HX OF COLONIC ILEUS. CALLS APPROPRIATELY FOR ASSISTANCE WILL CONTINUE TO MONITOR. CALL LIGHT WITHIN REACH.
--- NOTE | 2018-08-12 14:37 | NUR ---
received phone from niece heron who stated " her daughter called and will be in from [place] tomorrow and wants the car so i will bring back keys, but if pt doesn't want her to have it can she because she is dpoa."/heron. education on pt telling her daughter if she doesnt want her granddaughter to stay with here and that she not ready to give her car away. received call from daughter dagoberto stated " going to come in for visit tomorrow and then my daughter is going to stay with mom when she gets home"/daughter dagoberto. cm referenced senior blue book. cm was notified by pt that she wanted to talk. pt is a & o x 3, pleasant and able to make her needs know. let me know that her daughter was going to come for visit. spoke with heron linder and yun at bedside, they wanted to know who to fix daughter wanting to change dcp of granddaughter moving in. education that kailash needs to tell dagoberto that she doesnt want that. " well if problem with visit do we call cm"/pt. education that if problems arrives 5n team can call security if needed. " ok thanks"/pt. cm passed on information about daughter coming to visit tomorrow from [place]. will cont following as needed for dc needs.
[2018-08-12 21:20] VITALS: BP 139/46
--- NOTE | 2018-08-13 04:06 | NUR ---
in good spirits, looking forward to being able to go home Wednesday. up with walker in room, sat up in recliner during the evening. denies pain, nausea or dizziness. reported BM during day shift. took scheduled laxatives. encouraging water.
[2018-08-13 07:07] VITALS: BP 139/57
--- NOTE | 2018-08-13 08:15 | NUR ---
ASSUMED CARE AT 0715. REPORTS SLEPT GOOD. NIGHT NURSE SAID SHE HAD LARGE LOOSE BM THIS AM. HELD MIRALAX. VSS ON RA. TOOK ALL HER MORNING MEDS. PT DRESSED UP BY HERSELF. DENIES PAIN, SOB, N/V. HER GOALS TO HAVE GOOD VISIT WITH HER DAUGHTER AND WATCHING [employer] GAME TODAY. PATIENT A/O X4. [place]. CONTINUE PARTICIPATING IN THERAPY. UP X1 ASSIST GB AND WALKER. MOVED TO ROOM 501. MOD I IN ROOM, WHITE BELT FALL PRECAUTIONS IN PLACE. OFFERED SUPPORTIVE CARE. ENCOURAGED PT TO VOICE HER NEEDS. APPROPRIATELY FOR ASSISTANCE WILL CONTINUE TO MONITOR. CALL LIGHT WITHIN REACH.
[2018-08-13 20:01] VITALS: BP 150/55
--- NOTE | 2018-08-14 01:29 | NUR ---
PT AMBULATING IN APT INDEPENDENTLY WITH WALKER AND IS TOLERATING WELL. DENIES PAIN. RESTING COMFORTABLY. NO NEEDS VOICED. CALL LIGHT WITHIN REACH. WILL CONTINUE TO PROVIDE FREQUENT OBSERVATION.
[2018-08-14 07:15] VITALS: BP 142/61
--- NOTE | 2018-08-14 09:49 | NUR ---
ASSUMED CARE AT 0700. PATIENT IS ALERT AND ORIENTED X4. PATIENT VALIENTE, FABRICATION ENGINEER ARE EQUAL , PATIENT IS A WHITE BELT AND MOD/I IN HER ROOM. LUNGS ARE CLEAR. ABD IS SOFT WTIH BSX4 . ABD IS SOFT WITH BSX4. UP TO THE BATHROOM TO VOID. FALL AND SAFETY PROTOCOLS IN PLACE. C/O [place] PAIN. MEDICATED WITH PRN PAIN MED. CONTINUES TO PROGRESS TOWARDS D/C GOALS. PLAN D/C TO HOME IN THE A.M.
[2018-08-14 19:54] VITALS: BP 130/42
--- NOTE | 2018-08-15 01:45 | NUR ---
PT AMBULATING IN ROOM INDEPENDENTLY WITH WALKER AND IS TOLERATING WELL. DENIES PAIN. PLAN FOR DISCHARGE HOME 08/15. RESTING COMFORTABLY. NO NEEDS VOICED. CALL LIGHT WITHIN REACH. WILL CONTINUE TO PROVIDE FREQUENT OBSERVATION.
[2018-08-15 08:00] VITALS: BP 132/62
[2018-08-15 08:51] VITALS: BP 153/63
[2018-08-15] MEDS ORDERED: PROTONIX 20 MG20 M1 PO (09:50)
[2018-08-15] MEDS ORDERED: VOLTAREN100 GM TOP (09:50)
[2018-08-15] MEDS ORDERED: COLACE100 MG PO (09:50)
[2018-08-15] MEDS ORDERED: MIRALAX17 GM PO (09:50)
--- NOTE | 2018-08-15 10:38 | NUR ---
ASSUMED CARE AT 0700. REPORTS SLEPT GOOD. PATIENT IS ALERT AND ORIENTED X4. [place], ABLE TO VOICE HER NEEDS. EXCITING TO GO HOME TODAY. HER NIECE WILL PICK HER UP. REASSESSMENT PER CHART.CLASSIFIED ADVERTISING SUPERVISOR ARE EQUAL, PATIENT IS A WHITE BELT AND MOD/I IN HER ROOM.OT ASSISTED PT TO TOOK SHOWER THIS AM. LUNGS ARE CLEAR. ABD IS SOFT WTIH BSX4. REFUSED MIRALAX THIS AM, BUT TOOK COLACE. HAD SOFT BM TODAY. UP TO THE BATHROOM TO VOID. FALL AND SAFETY PROTOCOLS IN PLACE. DENIES PAIN. SCHEDULE MEDS GIVEN. OFFERED SUPPORTIVE CARE. PT UP WITH THERAPY. BIGHT MAKER FINISHED DISCHARGE MEDS. WILL REVIEWED DC INSTRUCTIONS AND MEDICATIONS WHEN FAMILY COME. PT USES CALL LIGHT APPROPRIATE, WILL CONTINUE TO MONITOR.
[2018-08-15] MEDS ORDERED: ASPIRIN325 PO (10:50)
[2018-08-15] MEDS ORDERED: CLARITIN10 MG PO (10:51)
[2018-08-15] MEDS ORDERED: FLONASE 0.05%50 MCG NASAL (10:51)
[2018-08-15 13:11] VITALS: BP 153/63
--- NOTE | 2018-08-16 14:49 | NUR ---
PT. DISCHARGED TO HOME WITH [facility] ON 08/15/18 JUST SPOKE WITH LUIS IN ADM, SHE RECEIVED DC ORDERS/SUMMARY AND WILL NOTIFY PT. OF TIME OF VISITS.
== END 2018-08-15 11:45 | disposition home health service (06) | DRG 551 ==
LOC: ENTRNSPT 08-15 11:32 → EDTRNSPTSTS 08-15 11:35
PROVIDERS: Internal Medicine; Nurse Practitioner; ADMIT Physical Medicine & Rehabilitation
DX: M50.10 Cervical disc disorder with radiculopathy, unspecified cervical region (principal); J96.01 Acute respiratory failure with hypoxia; E46 Unspecified protein-calorie malnutrition; D72.829 Elevated white blood cell count, unspecified; Z96.642 Presence of left artificial hip joint; Z60.2 Problems related to living alone; E87.6 Hypokalemia; E83.42 Hypomagnesemia; I48.2 Chronic atrial fibrillation; I25.10 Atherosclerotic heart disease of native coronary artery without angina pectoris; G89.29 Other chronic pain; M54.5 Low back pain; Z68.27 Body mass index [BMI] 27.0-27.9, adult; Z95.5 Presence of coronary angioplasty implant and graft; I25.2 Old myocardial infarction; Z88.6 Allergy status to analgesic agent; Z87.891 Personal history of nicotine dependence; G31.84 Mild cognitive impairment of uncertain or unknown etiology; F41.9 Anxiety disorder, unspecified; Z88.8 Allergy status to other drugs, medicaments and biological substances; Z96.643 Presence of artificial hip joint, bilateral; R13.10 Dysphagia, unspecified; K59.00 Constipation, unspecified; R00.1 Bradycardia, unspecified; J06.9 Acute upper respiratory infection, unspecified; I10 Essential (primary) hypertension; R10.13 Epigastric pain; R53.81 Other malaise
CPT/HCPCS: 10112

== ENCOUNTER → 2020-04-25 | Outpatient (CLI) | payer OTHER ==
[~2020-04-25] MED LIST changes: +ASPIRIN325 PO; +CLARITIN10 MG PO; +COLACE100 MG PO; +FLONASE 0.05%50 MCG NASAL; +MIRALAX17 GM PO; +PROTONIX 20 MG20 M1 PO; +VOLTAREN100 GM TOP
== END ==
LOC: SJCVCIMAG 09:56
PROVIDERS: ATTEND Internal Medicine Cardiovascular Disease
DX: I08.0 Rheumatic disorders of both mitral and aortic valves (principal); I11.9 Hypertensive heart disease without heart failure; I25.10 Atherosclerotic heart disease of native coronary artery without angina pectoris; E78.00 Pure hypercholesterolemia, unspecified; I65.23 Occlusion and stenosis of bilateral carotid arteries; I82.412 Acute embolism and thrombosis of left femoral vein; D68.59 Other primary thrombophilia; Z79.899 Other long term (current) drug therapy; Z87.891 Personal history of nicotine dependence

== ENCOUNTER → 2021-02-12 | Outpatient (CLI) | payer OTHER | LOC: SJCVC 13:32 | PROVIDERS: ATTEND Internal Medicine Cardiovascular Disease | DX: R94.31 Abnormal electrocardiogram [ECG] [EKG] (principal); I25.10 Atherosclerotic heart disease of native coronary artery without angina pectoris; I10 Essential (primary) hypertension; E78.00 Pure hypercholesterolemia, unspecified; J44.9 Chronic obstructive pulmonary disease, unspecified; I34.1 Nonrheumatic mitral (valve) prolapse; I35.1 Nonrheumatic aortic (valve) insufficiency; Z88.8 Allergy status to other drugs, medicaments and biological substances; Z79.899 Other long term (current) drug therapy; Z87.891 Personal history of nicotine dependence; Z86.718 Personal history of other venous thrombosis and embolism ==